=== PATIENT | male | born 1980 | race African-American/Black ===

== ENCOUNTER 2018-10-05 14:52 | Emergency (ER) | payer BC ==
--- NOTE | 2018-10-05 15:33 | EDM.PDOC ---
ED HPI GENERAL MEDICAL PROBLEM - General Chief Complaint: General Stated Complaint: DENTAL COMPLAINT Time Seen by Provider: 10/05/18 15:16 Source of Information: Reports: Patient History Limitations: Reports: Language Barrier (Mild language barrier) - History of Present Illness INITIAL COMMENTS - FREE TEXT/NARRATIVE: 38-year-old male of descent presents to the ED with dental pain right lower mandible. Patient recognizes that his teeth are in very poor condition with multiple dental caries involving almost all of his molar teeth. Anal and is infection is coming from the right lower second molar tooth. Are broken off or dental carried down to the gingiva margin. He has no lymphadenopathy and no systemic signs of sickness. He has not had access to dental care. He is currently working at [employer]. Onset: Gradual Onset Date: 10/02/18 Duration: Day(s):, Constant, Getting Worse Location: Reports: Face (andible.) Quality: Reports: Ache, Pressure, Throbbing Severity: Severe (8 out of 10) Improves with: Reports: None Worsens with: Reports: None Context: Reports: Other (Numerous dental caries with secondary infection). Denies: Activity, Exercise, Lifting, Sick Contact, Trauma Associated Symptoms: Reports: No Other Symptoms. Denies: Confusion, Chest Pain , Cough, cough w sputum, Diaphoresis, Fever/Chills, Headaches, Loss of Appetite , Malaise, Nausea/Vomiting Treatments SCIENTIFIC AIDE: Reports: NSAIDS - Related Data Allergies Allergy/AdvReac Type Severity Reaction Status Date / Time No Known Allergies Allergy Verified 10/05/18 15:05 Home Meds: Home Meds Clindamycin HCl 300 mg PO TID #24 capsule 10/05/18 [Rx] oxyCODONE HCl/Acetaminophen [Percocet 5-325 mg Tablet] 1 - 2 each PO Q4H PRN # 14 tablet 10/05/18 [Rx] Past Medical History - Past Health History Medical/Surgical History: Denies Medical/Surgical History Social & Family History - Tobacco Use Smoking Status *Q: Never Smoker - Recreational Drug Use Recreational Drug Use: No - Living Situation & Occupation Occupation: Employed ED ROS GENERAL - Review of Systems Review Of Systems: See Below Constitutional: Reports: Fatigue. Denies: Fever, Chills, Malaise, Weakness, Diaphoresis HEENT: Reports: Dental Pain (Not being able to sleep much. Her dental pain involving the right lower molar teeth.) Respiratory: Reports: No Symptoms Cardiovascular: Reports: No Symptoms Endocrine: Reports: No Symptoms GI/Abdominal: Reports: No Symptoms : Reports: No Symptoms Musculoskeletal: Reports: No Symptoms Skin: Reports: No Symptoms Neurological: Reports: No Symptoms Psychiatric: Reports: No Symptoms Hematologic/Lymphatic: Reports: No Symptoms ED EXAM, GENERAL - Physical Exam Exam: See Below Exam Limited By: No Limitations General Appearance: Alert, WD/WN, Mild Distress Eye Exam: Bilateral Eye: Normal Inspection Throat/Mouth: Other ( has severely decayed molar teeth bilateral uppers and lowers. There are broken off work until carried down to the gingiva margin. Current abscess is involving the right lower second molar tooth is exquisitely painful to touch with the tongue blade. No cervical adenopathy.). No: Normal Teeth Head: Atraumatic, Normocephalic. No: Facial Swelling Neck: Normal Inspection, Supple, Non-Tender. No: Full Range of Motion, Lymphadenopathy (R) Respiratory/Chest: No Respiratory Distress, Lungs Clear, Normal Breath Sounds Cardiovascular: Normal Peripheral Pulses, Regular Rate, Rhythm, No Edema, No Gallop, No Murmur, No Rub Course - Vital Signs Last Recorded V/S: Last Vital Signs Temp 36.7 C 10/05/18 15:05 Pulse 72 10/05/18 15:05 Resp 16 10/05/18 15:05 BP 161/107 H 10/05/18 15:05 Pulse Ox 100 10/05/18 15:05 - Radiology Interpretation Free Text/Narrative:: 38-year-old male of descent presents to the ED with dental pain involving right lower molar teeth. On inspection he has severe dental caries involving all of his molars right down to the gingiva margin. Current tooth that is causing the problem is the second right lower molar. There is surrounding gingiva swelling with no abscess that I could drain. He has no lymphadenopathy no systemic complaints. We'll place on clindamycin 100 mg 3 times a day for the next 8 days. Percocet tablets 5/325 milligrams one or 2 every 4-6 hours needed to help sleep and continue Motrin 600 mg every 6 hours to reduce pain and inflammation. He will need an oral surgeon to become involved to remove these teeth since they have broken up even with the gingiva margin they will have to be surgically excised. advise in this regard. Departure - Departure Time of Disposition: 15:29 Disposition: Home, Self-Care 01 Condition: Fair Clinical Impression: History of dental abscess, Dental abscess - Discharge Information *PRESCRIPTION DRUG MONITORING PROGRAM REVIEWED*: Not Applicable *COPY OF PRESCRIPTION DRUG MONITORING REPORT IN PATIENT KRISTY: Not Applicable Prescriptions: Clindamycin HCl 300 mg PO TID #24 capsule oxyCODONE HCl/Acetaminophen [Percocet 5-325 mg Tablet] 1 - 2 each PO Q4H PRN # 14 tablet PRN Reason: pain relief. Instructions: Dental Abscess Referrals: PCP,None [Primary Care Provider] - Forms: ED Department Discharge, ED Return to Work/School Form Additional Instructions: Evaluation the emergency room today in regards to dental pain coming from right lower molar tooth. Examination reveals multiple severe dental caries of all of your molar teeth right lower mandible and left upper maxillary. These teeth or broken off at the gingiva margin will have to be removed by an oral surgeon. Current pain is coming from an abscessed right lower second molar tooth. Treatment is antibiotic clindamycin 1 tablet 3 times daily for the next 8 days to clear up infection in the root of the tooth. Continue Motrin 600 mg every 6 hours to relieve pain and inflammation. May use Percocet tablets 5/325 mg one or 2 every 4-6 hours as needed for relief of pain when not at work or operating machinery or driving a motor vehicle. He will have to follow up with a dentist who would refer you to an oral surgeon for dental management as at least 6 teeth have to be removed.
== END 2018-10-05 15:46 | disposition home or self-care (01) ==
LOC: JD.ED 14:52
DX: K04.7 Periapical abscess without sinus (principal)
CPT/HCPCS: 99282; 99283

== ENCOUNTER 2021-02-03 19:59 | Emergency (ER) | payer BC, OTHER ==
[2021-02-03] MEDS ORDERED: Ondansetron 4 MG/2 ML SDV IVPUSH ONE (20:08)
[2021-02-03] MEDS ORDERED: HYDROmorphone 0.5 MG/0.5 ML Syringe IVPUSH ONE (20:08)
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
[2021-02-03] MEDS ORDERED: Sodium Chloride 0.9% 1,000 ML IV SCH (20:15)
[2021-02-03] MEDS ORDERED: Iopamidol 612 MG/ML 100 ML Bottle IVPUSH ONE (20:31)
[2021-02-03] MEDS ORDERED: Iopamidol 612 MG/ML 50 ML SDV IVPUSH ONE (20:31)
[2021-02-03] MEDS ORDERED: Sodium Chloride 0.9% 10 ML Syringe FLUSH SCH (20:45)
[2021-02-03] MEDS ORDERED: Ibuprofen 600 MG Tab PO ONE (22:34)
--- NOTE | 2021-02-04 07:20 | CT ---
CT cervical spine Technique: Multiple axial sections through the cervical spine were obtained from above C1 inferiorly to the top of T4. Reconstructed sagittal and coronal images were obtained. Comparison: No prior cervical spine imaging is available. Findings: Slight disc space narrowing is noted at C3-4 with mild posterior spurring. Mild posterior spurring is also noted at C5-6. Mild anterior spurring is noted at T2-3 and T3-4. No bony central or bony neural foraminal stenosis is seen. Visualized lung bases are clear. No acute fracture or abnormal subluxation is seen. Impression: 1. Mild degenerative change at C3-4 and C5-6. 2. No acute fracture or subluxation is seen. Diagnostic code #2 I agree with preliminary report from [facility], finalized on 02/03/21, 10:48 PM CDT, code 1
--- NOTE | 2021-02-04 07:48 | CT ---
CT chest Technique: Multiple axial sections were obtained from above the lung apices inferiorly through the lung bases. Intravenous contrast was utilized. Reconstructed coronal and sagittal images were obtained. Comparison: Prior chest x-ray performed later on the same day. Findings: Thoracic aorta shows no aneurysm. Mediastinum and hilar regions show no adenopathy. No axillary adenopathy is appreciated. No pericardial thickening is appreciated. Lung window settings were reviewed. Minimal dependent atelectasis is noted within both posterior lungs which is a normal finding. No acute parenchymal change is seen. No pneumothorax or pleural effusion is seen. Bone window settings were reviewed. Minimal degenerative change is seen within the thoracic spine. No acute osseous abnormality is appreciated. Impression: 1. Nothing acute is seen on CT study of the chest. Diagnostic code #1 I agree with preliminary report from [facility], finalized on 02/03/21, 10:44 PM CDT, code 1 CT abdomen and pelvis Technique: Multiple axial sections were obtained from above the dome of the diaphragm inferiorly through the pubic symphysis. Intravenous contrast was utilized. No oral contrast has been given. Delayed images were obtained to the bladder. Reconstructed coronal and sagittal images were obtained. Comparison: No prior CT abdomen or pelvis study is available. Findings: Liver contains no focal abnormality. Spleen size is normal. Adrenal glands show no nodule. Gallbladder contains no calcified gallstones. Kidneys show symmetric contrast enhancement with no hydronephrosis or mass. Pancreas is within normal limits. Abdominal aorta shows no aneurysm. No retroperitoneal adenopathy or mesenteric abnormalities are seen. Appendix is seen which is normal. No pelvic mass or adenopathy is seen. No free fluid or inflammatory change is appreciated. Delayed images shows contrast within the distal ureters and within the bladder. Bone window settings were reviewed. No acute osseous abnormality is appreciated. Impression: 1. Nothing acute is appreciated on CT study of the abdomen and pelvis. Diagnostic code #1 I agree with preliminary report from [facility], finalized on 02/03/21, 10:44 PM CDT, code 1
--- NOTE | 2021-02-04 09:05 | CR ---
Chest: Portable view of the chest was obtained. Comparison: No prior chest x-ray, prior chest CT performed earlier on the same day. Heart size and mediastinum are normal. Lungs are clear with no acute parenchymal change. No acute osseous abnormality is appreciated. Impression: 1. Nothing acute is seen on portable chest x-ray. Diagnostic code #1
== END 2021-02-03 23:07 | disposition home or self-care (01) ==
LOC: JD.ED 19:59
DX: S16.1XXA Strain of muscle, fascia and tendon at neck level, initial encounter (principal); S80.211A Abrasion, right knee, initial encounter; S80.212A Abrasion, left knee, initial encounter; V49.40XA Driver injured in collision with unspecified motor vehicles in traffic accident, initial encounter
CPT/HCPCS: 36415; 71045; 71260; 72125; 74177; 80053; 83690; 84484; 85007; 85027; 93005; 96374; 96375; 99285; A9270; J1170; J2405; J7030; Q9967; 99284